=== PATIENT | female | born 1985 | race Caucasian/White ===

== ENCOUNTER 2017-02-18 21:02 | Emergency (ER) | payer OTHER ==
[2017-02-18 21:58] LABS: Urine Bacteria 1+ (Absent); Urine Bilirubin Negative (Negative); Urine Glucose Negative (Negative); Urine Nitrite Negative (Negative)
[2017-02-18 23:05] LABS: Hematocrit 35 % (35-47); Hemoglobin 12.1 g/dl (12.0-16.0); Mean Corpuscular HGB Conc 35 g/dl (31-36); Mean Corpuscular Hemoglobin 29 pg (27-31); Mean Corpuscular Volume 85 fL (80-97); Mean Platelet Volume 10 um3 (7.4-10.4); Red Blood Count 4.13 10^6/ul (4.0-5.4); Red Cell Distribution Width 14 % (10.5-15); White Blood Count 14.1 10^3/ul (3.5-10.8)
[2017-02-18 23:22] LABS: Albumin 3.5 g/dL (3.2-5.2); BUN/Creatinine Ratio 8.5 (8-20); EGFR African American 200.1 (>60); EGFR Non-African American 155.6 (>60); Globulin 3.1 g/dL (2-4); Potassium 3.2 mmol/L (3.5-5.0); Total Bilirubin 0.2 mg/dL (0.2-1.0); Total Protein 6.6 g/dL (6.4-8.9)
[2017-02-19] MEDS ORDERED: Cyclobenzaprine TAB* 10 MG PO ONE (00:31)
[2017-02-19 01:32] VITALS: BP 100/63
--- NOTE | 2017-02-19 03:59 | ED ---
Sophia Gann Rebecca, scribed for Ailyn Fox MD on 02/18/17 at 2357 . - HPI Summary HPI Summary: Pt is a 32 y/o F who is 19 weeks who presents to ED c/o abdominal pain. Sx began 4-5 days ago and is located in the L suprapubic region, characterized as sharp. Pain is currently moderate, ranked 4/10. Sx aggravated by sitting up, alleviated by nothing. Denies fever, chills. No changes in BM. Pain is not similar to previous -related pain. A0. - History of Current Complaint Chief Complaint: EDFlankPain Stated Complaint: LT SIDE ABD PAIN/19 WKS PREG Time Seen by Provider: 02/18/17 23:21 Hx Obtained From: Patient Onset/Duration: Started Days Ago, Still Present Current Severity: Moderate Pain Intensity: 4 Location of Pain: Suprapubic - Left Aggravating Factors: Other: - Sitting up Alleviating Factors: Nothing Associated Signs and Symptoms: Positive: Negative. Negative: Fever - Assessment Hx Now: Yes - Due May 06 SAB: 0 IEA: 0 - Additional Pertinent History Maternal Blood Type and Rh: A Positive - Allergies/Home Medications Allergies/Adverse Reactions: Allergies Allergy/AdvReac Type Severity Reaction Status Date / Time No Known Allergies Allergy Verified 02/18/17 21:18 PMH/Surg Hx/FS Hx/Imm Hx Endocrine/Hematology History: Denies: Hx Diabetes, Hx Thyroid Disease Cardiovascular History: Denies: Hx Hypertension Respiratory History: Denies: Hx Asthma, Hx Chronic Obstructive Pulmonary Disease (COPD) GI History: Denies: Hx Ulcer Psychiatric History: Reports: Hx Community Mental Health Tx - Last involved 1 year ago at [facility]., Hx Bipolar Disorder - Not currently in tx. Per pt: no psychotropic medications in past 8 years., Other Psychiatric Issues/Disorders - remote hx bipolar - no meds - Surgical History Surgery Procedure, Year, and Place: Left hi[pp and ankle surgery, plate and screws in ankle, pins in hip - Immunization History Date of Tetanus Vaccine: 01/2012 Date of Influenza Vaccine: None Infectious Disease History: No Infectious Disease History: Denies: Hx Hepatitis, Hx Human Immunodeficiency Virus (HIV), Traveled Outside the [place] in Last 30 Days - Family History Known Family History: Positive: Diabetes - Social History Alcohol Use: None Substance Use Type: Reports: None Smoking Status (MU): Light Every Day Tobacco Smoker Have You Smoked in the Last Year: Yes Review of Systems Negative: Fever, Chills Positive: Abdominal Pain - L suprapubic All Other Systems Reviewed And Are Negative: Yes Physical Exam - Summary Physical Exam Summary: General: Well appearing, no pain distress Skin: Warm, Skin Color Reflects Adequate Perfusion, Dry Eyes: EOMI, KIAH ENT: Pharynx normal, TMs normal Neck: Supple, nontender Respiratory: CTA, breath sounds present, no rhonchi, no wheezes, no rales Cardiovascular: RRR, no murmur, no rub, no gallop Abdomen: Soft, Tenderness over her inner groin muscles, Non-distended, no guarding, no rebound Bowel: Present Musculoskeletal: NICOLE, No edema Neuro: Sensory/motor intact, A&Ox3, CN intact 2-12 Psych: Affect/mood appropriate - Physical Exam Triage Information Reviewed: Yes Vital Signs Reviewed: Yes - Vaginal Assessment Presentation Comment: cervix posterior, thick Diagnostics - Vital Signs Vital Signs Temp Pulse Resp BP Pulse Ox 02/18/17 21:15 97.6 F 88 12 123/61 100 - Laboratory Lab Results: Lab Results 02/18/17 02/18/17 02/18/17 Range/Units 21:28 22:55 22:55 WBC 14.1 H (3.5-10.8) 10^3/ul RBC 4.13 (4.0-5.4) 10^6/ul Hgb 12.1 (12.0-16.0) g/dl Hct 35 (35-47) % MCV 85 (80-97) fL MCH 29 (27-31) pg MCHC 35 (31-36) g/dl RDW 14 (10.5-15) % Plt Count 199 (150-450) 10^3/ul MPV 10 (7.4-10.4) um3 Neut % (Auto) 61.7 (38-83) % Lymph % (Auto) 28.5 (25-47) % [place] % (Auto) 6.2 (1-9) % Eos % (Auto) 2.8 (0-6) % Baso % (Auto) 0.8 (0-2) % Absolute Neuts (auto) 8.7 H (1.5-7.7) 10^3/ul Absolute Lymphs (auto) 4.0 (1.0-4.8) 10^3/ul Absolute Monos (auto) 0.9 H (0-0.8) 10^3/ul Absolute Eos (auto) 0.4 (0-0.6) 10^3/ul Absolute Basos (auto) 0.1 (0-0.2) 10^3/ul Absolute Nucleated RBC 0.01 10^3/ul Nucleated RBC % 0.1 Sodium 136 (133-145) mmol/L Potassium 3.2 L (3.5-5.0) mmol/L Chloride 105 (101-111) mmol/L Carbon Dioxide 25 (22-32) mmol/L Anion Gap 6 (2-11) mmol/L BUN 4 L (6-24) mg/dL Creatinine 0.47 L (0.51-0.95) mg/dL Est GFR ( Amer) 200.1 (>60) Est GFR (Non-Af Amer) 155.6 (>60) BUN/Creatinine Ratio 8.5 (8-20) Glucose 99 (70-100) mg/dL Calcium 9.0 (8.6-10.3) mg/dL Total Bilirubin 0.20 (0.2-1.0) mg/dL AST 8 L (13-39) U/L ALT 7 (7-52) U/L Alkaline Phosphatase 48 (34-104) U/L Total Protein 6.6 (6.4-8.9) g/dL Albumin 3.5 (3.2-5.2) g/dL Globulin 3.1 (2-4) g/dL Albumin/Globulin Ratio 1.1 (1-3) Lipase 27 (11.0-82.0) U/L Beta HCG, Quant Pending Urine Color Straw Urine Appearance Cloudy Urine pH 6.0 (5-9) Ur Specific [place] 1.004 L (1.010-1.030) Urine Protein Negative (Negative) Urine Ketones Negative (Negative) Urine Blood Negative (Negative) Urine Nitrate Negative (Negative) Urine Bilirubin Negative (Negative) Urine Urobilinogen Negative (Negative) Ur Leukocyte Esterase 1+ H (Negative) Urine WBC (Auto) Trace(0-5/hpf) (Absent) Urine RBC (Auto) Absent (Absent) Ur Squamous Epith Cells Present H (Absent) Urine Bacteria 1+ H (Absent) Urine Glucose Negative (Negative) Result Diagrams: 02/18/17 22:55 02/18/17 22:55 Lab Statement: Any lab studies that have been ordered have been reviewed, and results considered in the medical decision making process. Course/Dx - Course Course Of Treatment: pt with pain over her si joint and sob. She was started on flexeril and given a note to get increased breaks at work. She was also given exercise printout for si joint dysfunction during . Pt received a neb here for her sob. she denied any chest pain and her vitals were stable, PE is in the differential but she wasnt tachypneic and it seemed an unlikely cause in her particular case (no leg pain) she had run out of her mdi, which was re-ordered for her - Diagnoses Provider Diagnoses: Strain of pelvis Discharge - Discharge Plan Condition: Stable Disposition: HOME Prescriptions: Cyclobenzaprine TAB* [Flexeril 10 MG TAB*] 10 mg PO TID PRN #30 tab PRN Reason: Spasms Patient Education Materials: Pelvic Pain in Women (ED) Referrals: [facility] [place] [facility] [Outside] - 3 Days The documentation as recorded by the Sophia hicks Rebecca accurately reflects the service I personally performed and the decisions made by me, Ailyn Fox MD.
== END 2017-02-19 01:30 | disposition home or self-care (01) ==
LOC: ED 21:02
DX: O26.892 Other specified pregnancy related conditions, second trimester (principal); Z3A.19 19 weeks gestation of pregnancy; S76.012A Strain of muscle, fascia and tendon of left hip, initial encounter; O99.332 Smoking (tobacco) complicating pregnancy, second trimester; F17.290 Nicotine dependence, other tobacco product, uncomplicated
CPT/HCPCS: 36415; 80053; 81003; 81015; 83690; 84702; 85025; 87086; A9270-GY